=== PATIENT | male | born 1940 | race Asian ===

== ENCOUNTER → 2020-02-21 | Day surgery (SDC) | payer MEDICARE, OTHER ==
[2020-02-18 13:27] LABS: COVID AG,FIA SOURCE NASOPHARYNGEAL
[~2020-02-21] VITALS: Ht 160 cm; Wt 63.8 kg
[~2020-02-21] MED LIST: ALBUTEROL SULFATE 2.5 MG/0.5 ML NEB SOLUTION NEB ONE; BENA10TA77 PO; BENZOCAINE 20% 50 MCG/SPRAY 57 GM TP ONE; BISO5TAB13 PO; ENTE0.5T4 PO; FentaNYL CITRATE-PF 100 MCG/2 ML VIAL ONE; IBRU140C PO; LIDOCAINE 2% 30 ML JELLY TP ONE; LIDOCAINE 4% 50 ML SOLUTION TP ONE; MIDAZOLAM HCL 2 MG/2 ML VIAL ONE; MethylPREDNISolone SOD SUCC 125 MG/2 ML VIAL IVP ONE; MethylPREDNISolone SOD SUCC 125 MG/2 ML VIAL ONE; OXYGEN THERAPY IH SCH; SODIUM CHLORIDE 0.9% 1,000 ML IV ONE; SODIUM CHLORIDE 0.9% 1,000 ML ONE; URSO500T10 PO
== END | disposition home or self-care (01) ==
LOC: SURGERY 06:42
PROVIDERS: ATTEND Internal Medicine Critical Care Medicine
DX: R05 Cough (principal); R04.2 Hemoptysis; J47.9 Bronchiectasis, uncomplicated; R91.1 Solitary pulmonary nodule; J34.89 Other specified disorders of nose and nasal sinuses; B37.0 Candidal stomatitis; J38.4 Edema of larynx; J98.8 Other specified respiratory disorders; I10 Essential (primary) hypertension; Z98.890 Other specified postprocedural states; Z79.899 Other long term (current) drug therapy
CPT/HCPCS: 31623; 31624; 71045; 87015; 87070; 87101; 87206; 87220; 87426; 93005; C9803; J2250; J2930; J3010; J7030; J7613; Z7610

== ENCOUNTER 2022-06-12 06:43 | Day surgery (SDC) | payer MEDICARE, OTHER ==
[~2022-06-12] VITALS: Ht 160 cm; Wt 63.6 kg
[~2022-06-12 06:43] MED LIST changes: -ALBUTEROL SULFATE 2.5 MG/0.5 ML NEB SOLUTION NEB ONE; -BENZOCAINE 20% 50 MCG/SPRAY 57 GM TP ONE; +ENTE0.5T12 PO; -ENTE0.5T4 PO; -FentaNYL CITRATE-PF 100 MCG/2 ML VIAL ONE; -LIDOCAINE 2% 30 ML JELLY TP ONE; -LIDOCAINE 4% 50 ML SOLUTION TP ONE; -MIDAZOLAM HCL 2 MG/2 ML VIAL ONE; -MethylPREDNISolone SOD SUCC 125 MG/2 ML VIAL IVP ONE; -MethylPREDNISolone SOD SUCC 125 MG/2 ML VIAL ONE; -OXYGEN THERAPY IH SCH; -SODIUM CHLORIDE 0.9% 1,000 ML IV ONE; -SODIUM CHLORIDE 0.9% 1,000 ML ONE
[2022-06-12] MEDS ORDERED: LIDOCAINE 4% 50 ML SOLUTION TP ONE (06:44)
[2022-06-12] MEDS ORDERED: BENZOCAINE 20% 50 MCG/SPRAY 57 GM TP ONE (06:44)
[2022-06-12] MEDS ORDERED: LIDOCAINE 2% 11 ML JELLY TP ONE (06:44)
[2022-06-12] MEDS ORDERED: SODIUM CHLORIDE 0.9% 1,000 ML IV ONE (07:00)
[2022-06-12 07:18] LABS: COVID AG,FIA SOURCE NASAL SWAB
[2022-06-12] MEDS ORDERED: SODIUM CHLORIDE 0.9% 1,000 ML ONE (07:33)
[2022-06-12] MEDS ORDERED: MIDAZOLAM HCL 2 MG/2 ML VIAL ONE (08:15)
[2022-06-12] MEDS ORDERED: FentaNYL CITRATE PF 100 MCG/2 ML VIAL ONE (08:15)
[2022-06-12] MEDS ORDERED: MethylPREDNISolone SOD SUCC 125 MG/2 ML VIAL IVP ONE (09:45)
[2022-06-12] MEDS ORDERED: MethylPREDNISolone SOD SUCC 125 MG/2 ML VIAL ONE (10:28)
== END 2022-06-12 12:30 | disposition home or self-care (01) ==
LOC: SURGERY 06:43
PROVIDERS: ATTEND Internal Medicine Critical Care Medicine
DX: R05.3 Chronic cough (principal); I10 Essential (primary) hypertension; R91.1 Solitary pulmonary nodule; J98.09 Other diseases of bronchus, not elsewhere classified; J98.8 Other specified respiratory disorders; Z20.822 Contact with and (suspected) exposure to COVID-19
CPT/HCPCS: 31623; 88112; 87206; 87101; 87220; 87070; 31624; 71045; 87015; 87426; J3010; J2250; J2930; Q9967; J7030; C9803; Z7610